=== PATIENT | male | born 1985 | race African-American/Black ===

== ENCOUNTER 2024-11-19 10:58 | Emergency (ER) | payer SELFPAY ==
[~2024-11-19] VITALS: Ht 177.8 cm; Wt 90.0 kg
[2024-11-19 11:01] VITALS: BP 176/98; PULSE 86; RESP 18; TEMP 36.7; O2SAT 98
[2024-11-19 11:58] LABS: CLARITY URINE CLEAR (CLEAR); COLOR URINE YELLOW (YELLOW); GLUCOSE URINE NEGATIVE (NEGATIVE); KETONES URINE TRACE (NEGATIVE); LEUKOCYTE ESTERASE URINE NEGATIVE (NEGATIVE); NITRITE URINE NEGATIVE (NEGATIVE); OCCULT BLOOD URINE NEGATIVE (NEGATIVE); PH URINE 6.5 (4.5-8.0); PROTEIN URINE 1+ (NEGATIVE); SPECIFIC GRAVITY URINE 1.018 (1.005-1.030)
[2024-11-19 12:04] LABS: RBC URINE 0-2 /hpf (0-2); SQUAMOUS EPITHELIAL CELL URINE RARE /lpf (RARE/1+); WBC URINE 0-2 /hpf (0-2)
[2024-11-19 12:05] LABS: BACTERIA URINE NONE SEEN; YEAST URINE NONE SEEN
[2024-11-19 13:12] LABS: BASOPHILS % 0.5 % (0.0-2.0); EOSINOPHILS % 1.3 % (0.0-5.0); HEMATOCRIT. 43.6 % (42.0-52.0); LYMPHOCYTES % 25.9 % (20.0-50.0); MEAN CORPUSCULAR HEMOGLOBIN 27.7 pg (28.0-32.0); MEAN CORPUSCULAR HGB CONC 32.2 g/dL (31.0-37.0); MEAN CORPUSCULAR VOLUME 86.2 fL (80.0-94.0); MEAN PLATELET VOLUME 7.9 fl (7.4-10.4); MONOCYTES % 6.5 % (2.0-8.0); NEUTROPHILS % 65.8 % (40.0-76.0); PLATELET 240 x1000/uL (130-400); RED BLOOD CELL COUNT 5.06 mill/uL (4.7-6.1); RED CELL DISTRIBUTION WIDTH 14.7 % (11.6-14.6); WHITE BLOOD COUNT 5.6 x1000/uL (4.5-11.0)
[2024-11-19 13:22] LABS: CHLORIDE 103 mEq/L (98-107); POTASSIUM 4.2 mEq/L (3.5-5.1); SODIUM 142 mEq/L (136-145)
[2024-11-19 13:23] LABS: CALCIUM 9.2 mg/dL (8.7-10.4); CARBON DIOXIDE 31 mEq/L (21-32)
[2024-11-19 13:26] LABS: PROTHROMBIN TIME 10.4 sec (9.6-11.0)
[2024-11-19 13:28] LABS: CREATININE 1.4 mg/dL (0.6-1.3); GLUCOSE 106 mg/dL (70-105)
[2024-11-19 13:29] LABS: UREA NITROGEN BLOOD 9 mg/dL (9-23)
[2024-11-19 13:30] LABS: ALANINE AMINOTRANSFERASE 23 IU/L (10-49); ALBUMIN 4.4 g/dL (3.2-4.8); ASPARTATE AMINOTRANSFERASE 24 IU/L (<34); BILIRUBIN DIRECT 0.1 mg/dL (<=3.0)
[2024-11-19 13:31] LABS: BILIRUBIN TOTAL 0.3 mg/dL (0.1-1.0); PROTEIN TOTAL 7.4 g/dL (6.0-8.3)
== END 2024-11-19 13:57 | disposition home or self-care (01) ==
LOC: ER 10:58
DX: G89.29 Other chronic pain (principal); R10.9 Unspecified abdominal pain; E78.00 Pure hypercholesterolemia, unspecified; I12.9 Hypertensive chronic kidney disease with stage 1 through stage 4 chronic kidney disease, or unspecified chronic kidney disease; N18.9 Chronic kidney disease, unspecified
CPT/HCPCS: 36415; 74176; 80048; 80076; 81003; 85025; 99284

== ENCOUNTER 2024-11-19 15:17 | Emergency (ER) | payer SELFPAY ==
[~2024-11-19] VITALS: Ht 180.3 cm; Wt 100.0 kg
[2024-11-19 15:33] VITALS: BP 152/97; TEMP 36.7; O2SAT 98
[2024-11-19 15:34] VITALS: PULSE 99; RESP 20; O2SAT 98
[2024-11-19] MEDS: ACETAMINOPHEN 325MG TABLET PO ONE (18:47)
== END 2024-11-19 18:51 | disposition home or self-care (01) ==
LOC: ER 15:17
DX: M54.9 Dorsalgia, unspecified (principal); E78.00 Pure hypercholesterolemia, unspecified; I10 Essential (primary) hypertension
CPT/HCPCS: 99282